=== PATIENT | male | born 1970 | race Two or more races ===

== ENCOUNTER 2019-05-10 01:56 | Emergency (ER) | payer BC, SELFPAY ==
[~2019-05-10] VITALS: Ht 172.7 cm; Wt 84.0 kg
[2019-05-10] MEDS ORDERED: TRAMADOL 50MG TABLET PO ONE (04:30)
[2019-05-10] MEDS ORDERED: KETOROLAC 60MG/2ML VIAL IM ONE (04:30)
[2019-05-10 05:30] VITALS: BP 132/68
== END 2019-05-10 06:48 | disposition home or self-care (01) ==
LOC: ER 01:56
DX: S43.102A Unspecified dislocation of left acromioclavicular joint, initial encounter (principal); W18.39XA Other fall on same level, initial encounter; Y93.89 Activity, other specified; Y92.89 Other specified places as the place of occurrence of the external cause; Y99.8 Other external cause status
CPT/HCPCS: 73000; 96372; 99283; J1885; Z7610; L3670

== ENCOUNTER 2022-08-19 06:20 | Emergency (ER) | payer SELFPAY ==
[~2022-08-19] VITALS: Ht 170.2 cm; Wt 91.0 kg
[2022-08-19 06:24] VITALS: BP 156/93
[2022-08-19] MEDS ORDERED: SODIUM CHLORIDE 0.9% 1,000 ML IV ONE (06:45)
[2022-08-19 08:23] LABS: HEMATOCRIT. 44.9 % (42.0-52.0); HEMOGLOBIN. 15.3 g/dL (14.0-18.0); MEAN CORPUSCULAR HEMOGLOBIN 30.2 pg (28.0-32.0); MEAN CORPUSCULAR VOLUME 88.4 fL (80.0-94.0); MEAN PLATELET VOLUME 8.2 fl (7.4-10.4); PLATELET 339 x1000/uL (130-400); RED BLOOD CELL COUNT 5.08 mill/uL (4.7-6.1); RED CELL DISTRIBUTION WIDTH 13.1 % (11.6-14.6)
[2022-08-19 08:32] LABS: CHLORIDE 102 mEq/L (98-107)
[2022-08-19 08:36] LABS: CLARITY URINE CLEAR (CLEAR); COLOR URINE YELLOW (YELLOW); KETONES URINE NEGATIVE (NEGATIVE); LEUKOCYTE ESTERASE URINE NEGATIVE (NEGATIVE); NITRITE URINE NEGATIVE (NEGATIVE); OCCULT BLOOD URINE TRACE (NEGATIVE); PH URINE 5.5 (4.5-8.0); PROTEIN URINE NEGATIVE (NEGATIVE); SPECIFIC GRAVITY URINE 1.004 (1.005-1.030); UROBILINOGEN URINE 0.2 E.U./dL (0.2-1.0)
[2022-08-19 08:42] LABS: ETHANOL BLOOD < 10 mg/dL
[2022-08-19 09:04] LABS: *AMPHETAMINES SCREEN URINE PRESUMTIVE POSITIVE (NEGATIVE); *BARBITURATES SCREEN URINE NEGATIVE (NEGATIVE); *BENZODIAZEPINES SCREEN URINE NEGATIVE (NEGATIVE); *COCAINE SCREEN URINE NEGATIVE (NEGATIVE); CANNABINOID URINE SCREEN NEGATIVE (NEGATIVE); METHADONE URINE SCREEN NEGATIVE (NEGATIVE); OPIATES URINE SCREEN NEGATIVE (NEGATIVE); PHENCYCLIDINE URINE SCREEN NEGATIVE (NEGATIVE)
[2022-08-19 09:52] LABS: PLATELET ESTIMATE NORMAL
== END 2022-08-19 09:23 | disposition home or self-care (01) ==
LOC: ER 06:20
DX: R00.2 Palpitations (principal); R06.02 Shortness of breath; F41.9 Anxiety disorder, unspecified
CPT/HCPCS: 36415; 71045; 80053; 80305; 80320; 81003; 84484; 85025; 93005; 96360; 96361; 99285; J7030; G0480

== ENCOUNTER 2024-02-03 08:28 | Emergency (ER) | payer OTHER ==
[~2024-02-03] VITALS: Ht 172.7 cm; Wt 79.0 kg
[2024-02-03 08:34] VITALS: BP 149/84; PULSE 83; RESP 20; TEMP 98.4; O2SAT 97
== END 2024-02-03 09:00 | disposition left against medical advice (07) ==
LOC: ER 08:28
DX: H57.11 Ocular pain, right eye (principal); Z53.21 Procedure and treatment not carried out due to patient leaving prior to being seen by health care provider
CPT/HCPCS: 99281

== ENCOUNTER 2024-02-04 06:35 | Emergency (ER) | payer OTHER ==
[~2024-02-04] VITALS: Ht 167.6 cm; Wt 89.0 kg
[2024-02-04 06:59] VITALS: O2SAT 100
[2024-02-04] MEDS: ACETAMINOPHEN 500MG TABLET PO ONE (08:41)
[2024-02-04 10:35] VITALS: BP 144/80; PULSE 91; RESP 16; TEMP 98.9
== END 2024-02-04 10:36 | disposition home or self-care (01) ==
LOC: ER 06:47
DX: J06.9 Acute upper respiratory infection, unspecified (principal); Z90.49 Acquired absence of other specified parts of digestive tract; Z98.890 Other specified postprocedural states
CPT/HCPCS: 87070; 87430; 99283